=== PATIENT | female | born 1970 | race Caucasian/White ===

== ENCOUNTER 2019-07-28 05:51 | Observation (INO) ==
[2019-07-28] MEDS ORDERED: *HR* FentaNYL (PF) 100 MCG/2 ML VIAL IVP ONE (06:15)
[2019-07-28] MEDS ORDERED: Ondansetron 4 MG/2 ML VIAL IVP ONE (06:15)
[2019-07-28] MEDS ORDERED: 0.9 % Sodium Chloride 1,000 ML IVC ONE (06:15)
[2019-07-28 06:22] LABS: Bilirubin,Urine Negative (Negative); Blood,Urine Trace (Negative); Clarity,Urine Cloudy (Clear); Color,Urine Yellow (Yellow); Glucose,Urine (UA) Normal (Normal); Ketones,Urine Negative (Negative); Leukocyte Esterase,Urine Large (Negative); Nitrite,Urine Negative (Negative); Protein,Urine 30 mg/dL (Neg-Trace); Specific Gravity,Urine 1.023 (1.010-1.025); Urobilinogen,Urine Normal (Normal)
[2019-07-28 06:23] LABS: Bacteria,Urine Many per hpf (None-Few); Hyaline Casts,Urine None Seen per lpf (None-Few); Squamous Epithelial Cell,Urine Many per lpf (None-Few); WBC,Urine TNTC per hpf (0-3)
[2019-07-28 06:26] LABS: Basophils # 0.1 K/mcL (0.0-0.2); Basophils % 0.7 %; Eosinophils # 0.3 K/mcL (0.0-0.6); Hematocrit 37.8 % (35.3-44.9); Hemoglobin 11.7 g/dL (11.5-15.4); Immature Granulocytes % 0.2 % (0-4); Lymphocytes # 2.5 K/mcL (0.6-4.6); Lymphocytes % 23.9 %; Mean Corpuscular Hemoglobin 29.4 pg (28.0-33.3); Mean Platelet Volume 11.5 fL (9.4-12.4); Monocytes # 0.7 K/mcL (0.0-1.3); Monocytes % 6.2 %; Platelet Count 244 K/mcL (140-400); Red Blood Count 3.98 M/mcL (3.82-4.97); Red Cell Distribution Width 13.2 % (11.5-14.5); White Blood Count 10.6 K/mcL (4.3-11.1)
[2019-07-28 06:55] LABS: BUN/Creatinine Ratio 17 (6-26); Blood Urea Nitrogen 13 mg/dL (6-20); Calcium 8.9 mg/dL (8.6-10.3); Carbon Dioxide 25 mEq/L (23-29); Chloride 105 mEq/L (98-107); Glucose 99 mg/dL (70-105); Osmolality,Calculated 282 (280-300); Potassium 3.7 mEq/L (3.5-5.1); Sodium 136 mEq/L (136-145); eGFR For African Americans > 60 (> 60); eGFR For Non-African Americans > 60 (> 60)
[2019-07-28] MEDS ORDERED: cefTRIAXone 1,000 MG in Water for inj. (sterile) 10 ML IVP ONE (07:43)
[2019-07-28] MEDS ORDERED: Ketorolac 15 MG/ML VIAL IVP ONE (07:43)
[2019-07-28] MEDS ORDERED: 0.9 % Sodium Chloride 1,000 ML IVC SCH (08:15)
[2019-07-28] MEDS ORDERED: Ondansetron 4 MG/2 ML VIAL IVP PRN (10:37)
[2019-07-28] MEDS ORDERED: Hyoscyamine SL 0.125 MG TAB.SUBL SL PRN (10:37)
[2019-07-28] MEDS ORDERED: *HR* Promethazine 25 MG/ML VIAL IVP PRN (10:37)
[2019-07-28] MEDS ORDERED: Naloxone 0.4 MG/ML INJ IVP PRN (10:37)
[2019-07-28] MEDS ORDERED: Ketorolac 15 MG/ML VIAL IVP PRN (10:37)
[2019-07-28] MEDS: 0.9 % Sodium Chloride 1,000 ML IVC SCH ×2 (12:07→22:03)
[2019-07-28] MEDS: *HR* HYDROcodone/Acet 5/325 mg TABLET PO PRN ×2 (12:07→22:03)
[2019-07-29] MEDS ORDERED: Levothyroxine 25 MCG TABLET PO SCH (06:30)
[2019-07-29] MEDS ORDERED: cefTRIAXone 1,000 MG in 0.9 % Sodium Chloride Mini Bag 100 ML IVPB ONE ×2 (08:45→13:00)
[2019-07-29] MEDS: 0.9 % Sodium Chloride 1,000 ML IVC SCH (12:26)
[2019-07-29] MEDS ORDERED: Ondansetron 4 MG/2 ML VIAL ONE (15:34)
[2019-07-29] MEDS ORDERED: Lidocaine -MPF 2% 2 ML VIAL ONE (15:34)
[2019-07-29] MEDS ORDERED: Dexamethasone 4 MG/ML VIAL ONE (15:34)
[2019-07-29] MEDS ORDERED: *HR* Propofol 200 MG/20 ML VIAL IVP ONE (15:35)
[2019-07-29] MEDS ORDERED: *HR* FentaNYL (PF) 100 MCG/2 ML VIAL ONE (16:00)
[2019-07-29] MEDS ORDERED: *HR* Midazolam HCl 2 MG/2 ML VIAL ONE (16:01)
[2019-07-29] MEDS ORDERED: Acetaminophen IV 1,000 MG/100 ML INFUS..BTL ONE (16:10)
[2019-07-29] MEDS ORDERED: Ketorolac 30 MG/ML VIAL ONE (16:36)
[2019-07-29] MEDS ORDERED: *HR* PHENYLEPHRINE 1,000 MCG/10 ML SYRINGE IVP ONE (16:37)
[2019-07-29] MEDS ORDERED: *HR* Promethazine 25 MG/ML VIAL IVP PRN (18:42)
[2019-07-29] MEDS ORDERED: Naloxone 0.4 MG/ML INJ IVP PRN (18:42)
[2019-07-29] MEDS ORDERED: 0.9 % Sodium Chloride 1,000 ML IVC SCH (18:42)
[2019-07-29] MEDS ORDERED: *HR* HYDROcodone/Acet 5/325 mg TABLET PO PRN (18:42)
[2019-07-29] MEDS ORDERED: Hyoscyamine SL 0.125 MG TAB.SUBL SL PRN (18:42)
[2019-07-29] MEDS ORDERED: Ondansetron 4 MG/2 ML VIAL IVP PRN (18:42)
[2019-07-29] MEDS ORDERED: Ketorolac 15 MG/ML VIAL IVP PRN (18:42)
[2019-07-29] MEDS ORDERED: Promethazine 25 MG in 0.9 % Sodium Chloride 50 ML IVPB PRN (18:52)
[2019-07-29 21:29] VITALS: BP 123/84
[2019-07-30] MEDS ORDERED: Levothyroxine 25 MCG TABLET PO SCH (06:30)
[2019-07-30] MEDS ORDERED: Cholecalciferol (D-3) 1,000 UNIT (25MCG) TABLET PO SCH (09:00)
== END 2019-07-29 22:58 | disposition home or self-care (01) ==
LOC: 3BNU 05:51 → EMEROOARM 05:51 → 3BNU 09:20
PROVIDERS: ADMIT Urology; ATTEND Urology
PROC: UROLITH (2019-07-29 16:00)